=== PATIENT | female | born 1990 | race Caucasian/White ===

== ENCOUNTER 2016-10-16 02:29 | Emergency (ER) | payer BC ==
[~2016-10-16] VITALS: Ht 167.6 cm; Wt 62.2 kg
[2016-10-16 03:12] LABS: HEMATOCRIT 38.1 % (36.0-46.0); MCH 28.2 PG (29.0-34.0); MCHC 33.6 G/DL (30.0-36.0); MCV 83.9 FL (83-99); MEAN PLAT.VOLUME 11.3 uM^3 (9.5-12.4); PLATELET COUNT 174 K/uL (156-360); RBC DIS.WIDTH-CV 12.7 % (11.8-14.6); RBC DIS.WIDTH-SD 38.8 % (39-53); RED BLOOD COUNT 4.54 M/uL (3.80-5.20); WHITE BLOOD COUNT 9.2 K/uL (4.1-10.2)
[2016-10-16 03:20] LABS: CHLORIDE 106 mEq/L (99-109); POTASSIUM 3.8 mEq/L (3.7-5.4); SODIUM 139 mEq/L (136-147)
[2016-10-16 03:22] LABS: GLUCOSE 119 mg/dL (70-99)
[2016-10-16 03:23] LABS: ANION GAP 11 MEQ/L (2-14)
[2016-10-16 03:26] LABS: GFR ESTIMATE (CALCULATED) > 59 mL/min/
[2016-10-16 03:27] LABS: UREA NITROGEN (BUN) 13 mg/dL (9-23)
[2016-10-16 03:34] LABS: QUANTITATIVE HCG < 4.0 MIU/ML
[2016-10-16 04:26] LABS: ADD MIUA? YES; BILIRUBIN NEGATIVE; BLOOD SMALL; COLOR YELLOW ((YELLOW)); GLUCOSE (STRIP) NEGATIVE; KETONES NEGATIVE; LEUKOCYTES NEGATIVE; NITRITE NEGATIVE; PROTEIN (STRIP) 30; UROBILINOGEN 0.2 MG/DL (0.2-1.0)
[2016-10-16 04:29] LABS: BACTERIA NONE SEEN /HPF; EPITHELIAL CELLS RARE /HPF; MUCUS 1+ /LPF; RED BLOOD CELLS 0-5 /HPF (0-5); UCUL ADDED? NO; WHITE BLOOD CELLS 0-5 /HPF (0-5)
[2016-10-16] MEDS ORDERED: TORADOL10 MG PO (04:35)
[2016-10-16 04:38] LABS: SPECIFIC GRAVITY 1.059 (1.000-1.030)
[2016-10-16 04:49] VITALS: BP 110/78
== END 2016-10-16 04:58 | disposition home or self-care (01) ==
LOC: EME 02:29
PROVIDERS: Physician Assistant
DX: R10.30 Lower abdominal pain, unspecified (principal)
CPT/HCPCS: 74177; 80048; 81003; 84702; 85027; 99281; 99284; J1885; J2405; J7040

== ENCOUNTER 2016-10-16 11:33 | Emergency (ER) | payer BC ==
[~2016-10-16] VITALS: Ht 167.6 cm; Wt 62.1 kg
[~2016-10-16 11:33] MED LIST: TORADOL10 MG PO
[2016-10-16 13:12] VITALS: BP 118/72
== END 2016-10-16 13:13 | disposition home or self-care (01) ==
LOC: EME 11:33
DX: R10.30 Lower abdominal pain, unspecified (principal)
CPT/HCPCS: 85025; 99281; 99283